=== PATIENT | female | born 1970 | race Two or more races ===

== ENCOUNTER 2017-02-21 10:37 | Emergency (ER) | payer OTHER ==
[~2017-02-21] VITALS: Ht 167.6 cm; Wt 95.3 kg
--- NOTE | 2017-02-21 10:59 | NUR ---
Presents self to ed for post op follow up. Per patient she had a "procedure" done by last February 03, 2017 and was advised to see PMD in two weeks, unfortunately, she was not given appointment till next month,. Patient's left leg is casted,.came in via wheelchair. Patient with piccline on ricardo for atb. Skin is warm to touch and non diaphoretic. Afbrile. vss. Awaiting for md evaluation
--- NOTE | 2017-02-21 10:59 | NUR ---
Note undone in EDM - 02/21/17 at 1130 by [email or web address] Presents self to ed for post op follow up. Per patient she had a "procedure" done by last February 03, 2017 and was advised to see PMD in two weeks, unfortunately, she was not given appointment till next month,. Patient's left leg is covered with dry dressing,.came in via wheelchair. Patient with piccline on ricardo for atb. Skin is warm to touch and non diaphoretic. Afbrile. vss. Awaiting for md evaluation
--- NOTE | 2017-02-21 11:09 | NUR ---
DR PEREZ ON THE PHONE WITH DR ESTEVES
--- NOTE | 2017-02-21 11:16 | NUR ---
dr. Butler at [facility]
[2017-02-21 11:22] LABS: BASOPHILS % (AUTO) 0.7 % (0.0-2.0); EOSINOPHILS # (AUTO) 0.2 /CMM (0.0-0.7); EOSINOPHILS % (AUTO) 4.4 % (0.0-6.0); HEMATOCRIT 30 % (33-45); HEMOGLOBIN 9.8 g/dL (11.5-14.8); LYMPHOCYTES # (AUTO) 1.7 /CMM (0.8-4.8); LYMPHOCYTES % (AUTO) 39.1 % (20.0-44.0); MEAN CORPUSCULAR HEMOGLOBIN 28 PG (26.0-33.0); MEAN CORPUSCULAR HGB CONC 33 g/dl (31.0-36.0); MEAN CORPUSCULAR VOLUME 85 fL (82-100); MONOCYTES # (AUTO) 0.6 /CMM (0.1-1.30); MONOCYTES % (AUTO) 13.3 % (2.0-12.0); NEUTROPHILS # (AUTO) 1.9 /CMM (1.8-8.9); NEUTROPHILS % (AUTO) 42.5 % (43.0-81.0); PLATELET COUNT (AUTO) 179 /CMM (150-450); RDW COEFFICIENT OF VARIATION 16.2 (11.5-15.0); RED BLOOD CELL COUNT(AUTO) 3.52 MIL/uL (4.0-5.2); WHITE BLOOD COUNT (AUTO) 4.4 K/uL (4.3-11.0)
[2017-02-21 11:36] LABS: CALCIUM, SERUM 8.7 mg/dL (8.5-10.1); CREATININE 1.1 mg/dL (0.6-1.3); POTASSIUM 4.2 mmol/L (3.5-5.1)
[2017-02-21 11:50] VITALS: BP 144/83
--- NOTE | 2017-02-21 11:50 | NUR ---
Patient discharged to home in stable condition. Written and verbal after care instructions given. Patient verbalizes understanding of instruction.
== END 2017-02-21 11:51 | disposition home or self-care (01) ==
LOC: ER 10:41
DX: M86.9 Osteomyelitis, unspecified (principal); E11.9 Type 2 diabetes mellitus without complications; I10 Essential (primary) hypertension
CPT/HCPCS: 36415; 80048; 85025; 99284; A4606; Z7610